=== PATIENT | male | born 1995 | race Two or more races ===

== ENCOUNTER 2017-04-22 12:15 | Emergency (ER) | payer SELFPAY | END 2017-04-22 13:31 | disposition home or self-care (01) | LOC: ERS 12:15 | DX: N34.1 Nonspecific urethritis (principal); F17.290 Nicotine dependence, other tobacco product, uncomplicated | CPT/HCPCS: 99406 ==

== ENCOUNTER 2020-04-07 20:06 | Emergency (ER) | payer SELFPAY ==
[2020-04-07] MEDS ORDERED: Dicyclomine 20 MG TAB ONE (21:03)
[2020-04-07 21:09] LABS: #Basophils 0.1 thou/uL (0.0-0.2); #Eosinphils 0.2 thou/uL (0.0-0.7); #Lymphocytes 1.8 thou/uL (1.20-3.40); #Monocytes 0.8 thou/uL (0.11-0.59); %Lymphocytes 26.5 % (21.0-51.0); %Monocytes 11.4 % (0.0-10.0); %Neutrophils 58.2 % (42.0-75.0); Hemoglobin 14.6 g/dL (14.0-18.0); Mean Corpuscular HGB CONC 33.5 g/dL (32.0-36.0); Mean Corpuscular Volume 86.5 fL (78.0-98.0); Mean Platelet Volume 6.7 fL (7.4-10.4); Platelet Count 278 thou/uL (130-400); RBC Distribution Width 12.6 % (11.5-14.5); Red Blood Cell (RBC) Count 5.04 mill/uL (4.70-6.10); White Blood Cell (WBC) Count 6.8 thou/uL (4.8-10.8)
--- NOTE | 2020-04-07 21:25 | ULT ---
RIGHT UPPER QUADRANT ULTRASOUND: 04/07/20 PROVIDED CLINICAL HISTORY: Abdominal pain. FINDINGS: The pancreas, liver, gallbladder, common duct and right kidney appear normal. Sonographic Freeman's si gn is negative. IMPRESSION: Normal. POS: JULIUS
[2020-04-07 21:31] LABS: ALT (SGPT) 61 U/L (8-55); AST (SGOT) 29 U/L (5-34); Albumin 3.9 g/dL (3.5-5.0); Alkaline Phosphatase 54 U/L (40-110); Anion Gap 15 mmol/L (10-20); BUN (Urea Nitrogen) 12 mg/dL (8.9-20.6); Bilirubin, Total 0.3 mg/dL (0.2-1.2); Calc. Creatinine Clearance 0 mL/min (70-130); Carbon Dioxide 27 mmol/L (22-29); Chloride 103 mmol/L (98-107); Estimated GFR-MDRD 84; Globulin 2.6 g/dL (2.4-3.5); Glucose 115 mg/dL (70-105); Lipase 10 U/L (8-78); Potassium 3.6 mmol/L (3.5-5.1); Protein, Total 6.5 g/dL (6.0-8.3); Sodium 141 mmol/L (136-145)
[2020-04-07 22:18] LABS: Bilirubin Negative (Negative); Blood, Urine Negative (Negative); Clarity Clear (Clear); Glucose, Urine (Dipstick) Normal (Negative); Ketone, Urine Negative (Negative); Leukocyte Negative Leu/uL (Negative); Nitrite Negative (Negative); Protein, Urine (Dipstick) 10 mg/dL (Neg-Trace); Specific Gravity, Urine 1.021 (1.002-1.036); Urobilinogen Normal mg/dL (Less than 2)
== END 2020-04-07 23:09 | disposition home or self-care (01) ==
LOC: ERS 20:06
DX: K52.9 Noninfective gastroenteritis and colitis, unspecified (principal); K92.2 Gastrointestinal hemorrhage, unspecified; F17.210 Nicotine dependence, cigarettes, uncomplicated
CPT/HCPCS: 76705; 80053; 81003; 82274; 83690; 85025

== ENCOUNTER 2024-01-01 13:21 | Emergency (ER) | payer SELFPAY | END 2024-01-01 14:49 | LOC: ERS 13:21 | DX: Z53.21 Procedure and treatment not carried out due to patient leaving prior to being seen by health care provider (principal) ==